=== PATIENT | female | born 1945 | race Caucasian/White ===

== ENCOUNTER 2021-04-18 09:16 | Emergency (ER) | payer OTHER ==
[2021-04-18 10:44] LABS: HEMOGLOBIN 13.1 gm/dl (12.3-15.3); RED BLOOD COUNT 4.25 M/UL (4.00-5.10); WHITE BLOOD COUNT 5.6 K/UL (4.5-11.0)
[2021-04-18 11:13] LABS: BUN/CREATININE RATIO 19 (0-10)
== END 2021-04-18 13:02 | disposition home or self-care (01) ==
LOC: ER1 09:16
PROVIDERS: Family Medicine
DX: I10 Essential (primary) hypertension (principal); R53.1 Weakness; E87.6 Hypokalemia
CPT/HCPCS: 80053; 82550; 82553; 83735; 83874; 84484; 85025; 99283